=== PATIENT | female | born 1930 | race Caucasian/White ===

== ENCOUNTER 2018-02-16 01:11 | Emergency (ER) | payer MEDICARE ==
[2018-02-16] MEDS ORDERED: Ondansetron HCl/PF 4 MG/2 ML Vial ONE (01:22)
[2018-02-16] MEDS ORDERED: Meclizine HCl 25 MG TAB ONE (01:40)
[2018-02-16 02:01] LABS: #Basophils 0.1 thou/uL (0.0-0.2); #Eosinphils 0.1 thou/uL (0.0-0.7); #Lymphocytes 0.9 thou/uL (1.20-3.40); #Monocytes 0.4 thou/uL (0.11-0.59); #Neutrophils 7.7 thou/uL (1.40-6.50); %Basophils 0.6 % (0.0-1.0); %Eosinophils 0.7 % (0.0-10.0); %Lymphocytes 10.3 % (21.0-51.0); %Monocytes 4.5 % (0.0-10.0); %Neutrophils 83.9 % (42.0-75.0); Hemoglobin 14.9 g/dL (12.0-16.0); Mean Corpuscular HGB CONC 33.1 g/dL (32.0-36.0); Mean Corpuscular Hemoglobin 31.7 pg (27.0-31.0); Mean Corpuscular Volume 95.8 fL (78.0-98.0); Mean Platelet Volume 11.4 fL (7.4-10.4); Platelet Count 84 thou/uL (130-400); RBC Distribution Width 12.2 % (11.5-14.5); Red Blood Cell (RBC) Count 4.72 mill/uL (4.20-5.40); White Blood Cell (WBC) Count 9.2 thou/uL (4.8-10.8)
[2018-02-16 02:14] LABS: Troponin I Less than 0.010 ng/mL (< 0.028)
[2018-02-16 03:19] LABS: Chloride 107 mmol/L (98-107); Sodium 139 mmol/L (136-145)
[2018-02-16 03:20] LABS: Calcium 9.1 mg/dL (7.8-10.44); Glucose 143 mg/dL (83-110)
[2018-02-16 03:21] LABS: Globulin 2.9 g/dL (2.4-3.5); Protein, Total 6.9 g/dL (6.0-8.3)
[2018-02-16 03:22] LABS: Anion Gap 13 mmol/L (10-20); Bilirubin, Total 0.7 mg/dL (0.2-1.2); Carbon Dioxide 23 mmol/L (23-31)
[2018-02-16 03:23] LABS: Alkaline Phosphatase 64 U/L (40-150)
[2018-02-16 03:24] LABS: BUN (Urea Nitrogen) 17 mg/dL (9.8-20.1); Calc. Creatinine Clearance 0 mL/min (70-130); Estimated GFR-MDRD 74
[2018-02-16 03:26] LABS: ALT (SGPT) 24 U/L (8-55); AST (SGOT) 21 U/L (5-34)
--- NOTE | 2018-02-16 08:52 | CT ---
PRELIMINARY REPORT/[facility]/EMERGENTY AFTER-HOURS PROCEDURE CT Head Without Intravenous Contrast CLINICAL HISTORY: 87 years old, female; Signs and symptoms; Dizziness; Patient HX: F87 presents to the ed C/O dizziness /vertigo and vomiting that started at 2000 last night. Pt. Reports that she first experienced the diz ziness symptoms where she then took one capsule of valium that provoked the n/v. Pt. Reports that her "throat feels dry". Pt. Reports having vertigo in the past and states that these sym ptoms are similar. Pt. Reports having a pacemaker. Pt. 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 TECHNIQUE: Axial computed tomography images of the head/brain without intravenous contrast. COMPARISON: No relevant prior studies available. FINDINGS: Brain: No mass, hemorrhage, or acute infarction. Ventricles: Normal. Bones/joints: Normal. No acute fracture. Soft tissues: Normal. Vasculature: Atherosclerotic vascular calcifications. Sinuses: Minimal left anterior ethmoid sinus disease. Mastoid air cells: Normal as visualized. No mastoid effusion. IMPRESSION: 1. No acute findings. 2. Non-acute findings are described above. Thank you for allowing us to participate in the care of your patient. Dictated and Authenticated by: Alexsander Finn MD 02/16/2018 2:58 AM Central Time ([place] & [place]) FINAL REPORT EMERGENCY AFTER HOURS STUDY CT BRAIN NONCONTRAST: HISTORY: An 87-year-old female with dizziness/vertigo, nausea, and emesis. FINDINGS: There is no midline shift or any other mass effect. There is no evidence of acute intracranial hemor rhage, large cortical infarct, obstructive hydrocephalus, or extraaxial fluid collection. The calvar ium is intact. This report agrees with preliminary report by [facility]. IMPRESSION: No acute intracranial findings. lemuel POS: [facility]
--- NOTE | 2018-02-16 09:29 | RAD ---
RADIOGRAPH CHEST 1 VIEW: HISTORY: An 87-year-old female with vertigo, nausea, and emesis. FINDINGS: There is cardiomegaly. There is no evidence of air space density, pulmonary edema, or pneumothorax. T he lateral costophrenic angles are sharp. There is a dual-lead left subclavian pacemaker. There are calcified right hilar lymph nodes, and several calcified pulmonary granulomata in the right mid and lower lung zones centrally. IMPRESSION: 1) No acute pulmonary findings. 2) Cardiomegaly without congestive heart failure. 3) Pacemaker. jn [] POS: [facility]
== END 2018-02-16 03:46 | disposition home or self-care (01) ==
LOC: ERS 01:11
DX: H81.399 Other peripheral vertigo, unspecified ear (principal); E03.9 Hypothyroidism, unspecified; Z79.899 Other long term (current) drug therapy
CPT/HCPCS: 36415; 70450; 71045; 80053; 83735; 84484; 85025; 93005; 96361; 96374; J2405

== ENCOUNTER 2018-07-28 03:41 | Emergency (ER) | payer MEDICARE ==
--- NOTE | 2018-07-28 07:43 | CT ---
PRELIMINARY REPORT/[facility]/EMERGENCY AFTER HOURS PROCEDURE: EXAM: CT Cervical Spine Without Contrast EXAM DATE/TIME: 07/28/2018 4:20 AM CLINICAL HISTORY: 87 years old, female; Injury or trauma; Fall; Initial encounter; Blunt trauma; Patient HX: F87 presen ts to ed for fall. PT reports she was upstairs in her 's room when she attempted to sit in a c hair which she reports went out from underneath her. PT reports falling and hitting her head on the floor. PT denies loc. TECHNIQUE: Imaging protocol: Axial computed tomography images of the cervical spine without intravenous contrast . COMPARISON: No relevant prior studies available. FINDINGS: Vertebrae: The bones are demineralized. No acute fracture. Discs/Spinal canal/Neural foramina: Multilevel degenerative disc and uncovertebral arthrosis. Mild to moderate spinal canal narrowing at the C5-C6 level secondary to posterior disc osteophyte complex. Soft tissues: Unremarkable. Lungs: Lung apices are normal. IMPRESSION: No evidence of acute injury to the cervical spine. Thank you for allowing us to participate in the care of your patient. Dictated and Authenticated by: Cristina Bermudez MD 07/28/2018 4:42 AM Central Time ([place] & [place]) FINAL REPORT CERVICAL SPINE CT WITHOUT CONTRAST: Date: 07/28/18 COMPARISON: None. HISTORY: Fall, trauma, pain. FINDINGS: This report is in agreement with the preliminary report given by [facility]. Imaged paranasal sinuses/masto id air cells are well aerated. C1 ring intact. Occipital condyles, dens, C1-2 articulation, craniocer vical junction, and cervicothoracic junction demonstrate no acute findings. Imaged lung apices are grossly unremarkable. There is an incompletely imaged transvenous pacing devic e on the left. There is multilevel disc space narrowing and degenerative end plate change throughout the cervical sp ine, including the C3-4 through C6-7 levels. There is also multilevel bilateral facet and uncovertebr al osteophyte formation, particularly left-sided. No acute fracture or evidence of dislocation. IMPRESSION: Degenerative changes. No acute fracture or dislocation noted. POS: [facility]
--- NOTE | 2018-07-28 08:28 | CT ---
PRELIMINARY REPORT/[facility]/EMERGENCY AFTER HOURS PROCEDURE: EXAM: CT Head Without Contrast EXAM DATE/TIME: 07/28/2018 4:18 AM CLINICAL HISTORY: 87 years old, female; Injury or trauma; Fall; Initial encounter; Blunt trauma (contusions or hematoma s); Patient HX: FRayo presents to ed for fall. PT reports she was upstairs in her 's room when s he attempted to sit in a chair which she reports went out from underneath her. PT reports falling and hitting her head on the floor. PT denies loc. TECHNIQUE: Imaging protocol: Axial computed tomography images of the head/brain without contrast. COMPARISON: No relevant prior studies available. FINDINGS: Brain: No hemorrhage. No major vessel vascular territory infarct. No extra-axial fluid collection. Ventricles: No hydrocephalus. Bones/joints: No acute fracture. Sinuses: Mild left ethmoidal sinus fluid. Mastoid air cells: Visualized mastoid air cells are unremarkable. No mastoid effusion. Soft tissues: Unremarkable. IMPRESSION: No acute intracranial abnormality. Thank you for allowing us to participate in the care of your patient. Dictated and Authenticated by: Cristina Bermudez MD 07/28/2018 4:35 AM Central Time ([place] & [place]) FINAL REPORT HEAD CT WITHOUT CONTRAST: Date: 07/28/18 COMPARISON: 02/16/18. HISTORY: Fall, trauma, pain. FINDINGS: This report is in agreement with the preliminary report given by [facility]. The imaged paranasal sinuses a nd mastoid air cells are well aerated. No intracranial hemorrhage, midline shift, or mass effect. No displaced calvarial fracture. IMPRESSION: No intracranial hemorrhage or displaced calvarial fracture. POS: [facility]
== END 2018-07-28 04:46 | disposition home or self-care (01) ==
LOC: ERS 03:41
DX: S09.90XA Unspecified injury of head, initial encounter (principal); I49.9 Cardiac arrhythmia, unspecified; E03.9 Hypothyroidism, unspecified; Z79.899 Other long term (current) drug therapy; Z79.01 Long term (current) use of anticoagulants; W18.30XA Fall on same level, unspecified, initial encounter
CPT/HCPCS: 70450; 72125

== ENCOUNTER 2018-08-27 08:00 | Emergency (ER) | payer MEDICARE ==
[2018-08-27] MEDS ORDERED: Ondansetron PF 4 MG/2 ML Vial ONE ×2 (08:25→08:51)
[2018-08-27] MEDS ORDERED: Meclizine HCl 25 MG TAB PO SCH (09:15)
[2018-08-27] MEDS ORDERED: Promethazine HCl 25 MG/ML VIAL ONE (09:19)
[2018-08-27] MEDS ORDERED: Meclizine HCl 25 MG TAB ONE (09:47)
== END 2018-08-27 13:55 | disposition home or self-care (01) ==
LOC: ERS 08:00
DX: H81.399 Other peripheral vertigo, unspecified ear (principal); R11.2 Nausea with vomiting, unspecified; E03.9 Hypothyroidism, unspecified; Z79.899 Other long term (current) drug therapy
CPT/HCPCS: 93005; 96361; 96365; 96375; J2405; J2550; J8499

== ENCOUNTER 2018-09-19 01:06 | Observation (INO) | payer MEDICARE ==
[2018-09-19] MEDS ORDERED: Meclizine HCl 25 MG TAB ONE ×2 (01:40→04:03)
[2018-09-19 01:46] LABS: Hemoglobin 15.6 g/dL (12.0-16.0); Mean Corpuscular HGB CONC 32.5 g/dL (32.0-36.0); Mean Corpuscular Hemoglobin 31.5 pg (27.0-31.0); Mean Corpuscular Volume 96.9 fL (78.0-98.0); RBC Distribution Width 12.3 % (11.5-14.5); Red Blood Cell (RBC) Count 4.95 mill/uL (4.20-5.40); White Blood Cell (WBC) Count 9.7 thou/uL (4.8-10.8)
[2018-09-19] MEDS ORDERED: Promethazine HCl 25 MG/ML VIAL ONE ×2 (01:50→03:00)
[2018-09-19 02:03] LABS: ALT (SGPT) 35 U/L (8-55); AST (SGOT) 32 U/L (5-34); Albumin 4.8 g/dL (3.4-4.8); Alkaline Phosphatase 79 U/L (40-150); Anion Gap 16 mmol/L (10-20); BUN (Urea Nitrogen) 20 mg/dL (9.8-20.1); Bilirubin, Total 0.6 mg/dL (0.2-1.2); Calc. Creatinine Clearance 0 mL/min (70-130); Calcium 10.1 mg/dL (7.8-10.44); Carbon Dioxide 22 mmol/L (23-31); Chloride 104 mmol/L (98-107); Estimated GFR-MDRD 72; Globulin 2.8 g/dL (2.4-3.5); Glucose 196 mg/dL (83-110); Potassium 4.1 mmol/L (3.5-5.1); Protein, Total 7.6 g/dL (6.0-8.3); Sodium 138 mmol/L (136-145)
[2018-09-19 02:11] LABS: #Basophils 0.1 thou/uL (0.0-0.2); #Eosinphils 0.2 thou/uL (0.0-0.7); #Lymphocytes 1.1 thou/uL (1.20-3.40); #Monocytes 0.5 thou/uL (0.11-0.59); #Neutrophils 7.8 thou/uL (1.40-6.50); %Basophils 0.8 % (0.0-1.0); %Eosinophils 1.7 % (0.0-10.0); %Lymphocytes 11.2 % (21.0-51.0); %Monocytes 5.3 % (0.0-10.0); Mean Platelet Volume 11.2 fL (7.4-10.4); Platelet Count 76 thou/uL (130-400); Platelet Morphology Comment Appears Decreased; RBC Morphology Normal
[2018-09-19] MEDS ORDERED: Promethazine HCl 12.5 MG SUPP ONE (02:59)
[2018-09-19] MEDS ORDERED: Ondansetron PF 4 MG/2 ML Vial ONE (03:29)
--- NOTE | 2018-09-19 05:17 | PDOC.FPRHP ---
- History of Present Illness Chief Complaint: Dizziness History of Present Illness: Mrs. Rea presents with her son for nausea/dizziness She is very somnolent on exam and responds minimally to questioning, her son at bedside answers most questions. She has had difficulties with vertigo for some time and tonight is no different, she has been overdoing it recently helping her with ADLs, additionally was exposed to second hand smoke today. She began to feel the room spin, have nausea/emesis last evening. At that point her son brought her in. He denies any new symptoms at that time, seizure, syncope, numbness, weakness, or fall. ED Course: CBC, CMP, lipase, trop, mg phengranx2, zofran, meclizine, 1L NS - Allergies/Adverse Reactions Allergies Allergy/AdvReac Type Severity Reaction Status Date / Time codeine Allergy Verified 11/02/16 06:41 morphine Allergy Verified 11/02/16 06:41 tetracycline Allergy Verified 11/02/16 06:41 MSG Allergy Mild Uncoded 11/02/16 06:41 - Home Medications Medication Instructions Recorded Confirmed Type Apixaban [Eliquis] 5 mg PO BID 04/02/14 09/19/18 History Levothyroxine Sodium [Synthroid] 75 mcg PO DAILY 04/02/14 09/19/18 History Diazepam [Valium] 2 mg PO HS PRN 09/19/18 09/19/18 History Losartan [Cozaar] 25 mg PO DAILY 09/19/18 09/19/18 History Ondansetron [Zofran ODT] 4 mg SL Q6H PRN 09/19/18 09/19/18 History - History PMHx: HTN, Afib, vertigo PSHx: lymph nodectomy FHx: NC Social: No TAD - Review of Systems General: denies: fever/chills, weight/appetite/sleep changes Eyes: reports: vision changes. denies: eye pain ENT: denies: nasal congestion Respiratory: denies: cough, congestion Cardiovascular: denies: chest pain, palpitation Gastrointestinal: reports: nausea, vomiting. denies: diarrhea, constipation Genitourinary: denies: incontinence, dysuria Skin: denies: rashes Musculoskeletal: denies: pain Neurological: denies: numbness, syncope, seizure, weakness - Vital signs BP: 159/97 HR: 70 RR: 22 Tmax: 97.9 Pox: 96% on RA Wt: 68kg - Physical Exam Constitutional: other (somnolent on exam) HEENT: normocephalic and atraumatic, grossly normal vision, grossly normal hearing Neck: supple, trachea midline Chest: no-tender to palpation Heart: RRR, normal S1/S2 Lungs: CTAB, no respiratory distress Abdomen: soft, non-tender Musculoskeletal: normal structure, normal tone Skin: no rash/lesions, good turgor Heme/Lymphatic: no unusual bruising or bleeding Psychiatric: normal mood and affect FMR H&P: Results - Labs Result Diagrams: 09/19/18 01:32 09/19/18 01:32 Lab results: WBC 9.7 thou/uL (4.8-10.8) 09/19/18 01:32 Hgb 15.6 g/dL (12.0-16.0) 09/19/18 01:32 Hct 48.0 % (36.0-47.0) H 09/19/18 01:32 MCV 96.9 fL (78.0-98.0) 09/19/18 01:32 Plt Count 76 thou/uL (130-400) L 09/19/18 01:32 Neutrophils % 81.0 % (42.0-75.0) H 09/19/18 01:32 Sodium 138 mmol/L (136-145) 09/19/18 01:32 Potassium 4.1 mmol/L (3.5-5.1) 09/19/18 01:32 Chloride 104 mmol/L (98-107) 09/19/18 01:32 Carbon Dioxide 22 mmol/L (23-31) L 09/19/18 01:32 BUN 20 mg/dL (9.8-20.1) 09/19/18 01:32 Creatinine 0.76 mg/dL (0.6-1.1) 09/19/18 01:32 Glucose 196 mg/dL (83-110) H 09/19/18 01:32 Calcium 10.1 mg/dL (7.8-10.44) 09/19/18 01:32 Total Bilirubin 0.6 mg/dL (0.2-1.2) 09/19/18 01:32 AST 32 U/L (5-34) 09/19/18 01:32 ALT 35 U/L (8-55) 09/19/18 01:32 Alkaline Phosphatase 79 U/L (40-150) 09/19/18 01:32 Serum Total Protein 7.6 g/dL (6.0-8.3) 09/19/18 01:32 Albumin 4.8 g/dL (3.4-4.8) 09/19/18 01:32 Lipase 41 U/L (8-78) 09/19/18 01:32 FMR H&P: A/P - Problem List (1) Vertigo Current Visit: Yes Status: Acute Code(s): R42 - DIZZINESS AND GIDDINESS (2) HTN (hypertension) Current Visit: Yes Status: Acute Code(s): I10 - ESSENTIAL (PRIMARY) HYPERTENSION (3) Afib Current Visit: Yes Status: Acute Code(s): I48.91 - UNSPECIFIED ATRIAL FIBRILLATION (4) Hypothyroid Current Visit: Yes Status: Acute Code(s): E03.9 - HYPOTHYROIDISM, UNSPECIFIED - Plan Intractable vertigo - resting more comfortably at this point, VSS on exam, pt fatigued - neuro exam deferred at that time as pt was sleeping, extensive neuro exam reported normal by ED physician - prn meclizine, phenergan, zofran - scopolamine TD - consider ativan if symptoms persist HTN - recorded elevations, most likely associated with n/v - continue home meds Afib - Vpaced, continue home anticoag Hypothyroid - continue home meds PCP: Rona Code: full ppx: christine dispo: admit to medical, treat vertigo FMR H&P: Upper Level - Pertinent history 87 yo female here for intractable nausea, dizziness. Room spinning. Started feeling dizzy and vomiting Wednesday night. Nurse staying at patient's house taking care of her called the patient's son who came over. Pt's son provides most of the history as the patient is sleeping during most of the interview. He reports she has been "overdoing it" recently with assisting . Patient has history of similar presentation, and has been admitted 3-4 times the past 4 years and has been seen in ER a few other times and d/c from ER for the same problem. Has been worked up and seen by neurology in the past. - Pertinent findings 152/79 HR: 70 RR: 17 GEN: drowsy, protecting airway and answers questions, but quickly goes back to sleep PULM: CTAB CARD: RRR, no mgr Labs, imaging unremarkable EKG shows ventricular pacing - Plan Date/Time: 09/19/18 0515 IDaniel DO, have evaluated this patient and agree with findings/plan as outlined by photography intern resident. Pertinent changes/additions are listed here. #vertigo -deferred full exam because patient was resting and not vomiting for the first time since arriving in the ER, exam was done by ER physician -meclizine, zofran, phenergan, scopolamine -can try reglan if no improvement -has been worked up for this extensively in the past #HTN -patient and son unable to give home med list -will attempt to med rec today #Afib -ventricular pacing Addendum - Attending - Attending Attestation Date/Time: 09/19/18 1325 I personally evaluated the patient and discussed the management with Dr. Gaviria I agree with the History, Examination, Assessment and Plan documented above with any addition or exceptions noted below. Pleasant 87 yo female with PMHX BPPV brought in with several days increasing symptoms she relates started by the smell of heavy nicotine odor on clothing from caregiver who smokes. Patient with poor response to zofran 4 mg ODT, antivert and phernergan. Patient to [facility] ER placed in observation with intractable emesis and started on IV fluids and promethazine with good response. History previous extensive Neurological work up. Note long standing thrombocytopenia ,hypothyroidism, atrial fibrillation s/p ablation and pacemaker , history of breast cancer s/p XRT. Will place observation IV re-hydration discuss trial 2mg valium q hs prn and transderm scopalamine as well. She denies headache, focal neurologic findings, hearing loss or tinnitus. Advance diet and activity d/c when back at baseline.
[2018-09-19] MEDS ORDERED: Ondansetron PF 4 MG/2 ML Vial IVP PRN (05:42)
[2018-09-19] MEDS ORDERED: Ondansetron ODT 4 MG TAB PO PRN (05:42)
[2018-09-19] MEDS ORDERED: Promethazine HCl 25 MG/ML VIAL IM/IV PRN (05:49)
[2018-09-19] MEDS ORDERED: Acetaminophen 325 MG TAB PO PRN (06:38)
[2018-09-19] MEDS ORDERED: Lactated Ringer's 1,000 ML IV SCH (06:45)
[2018-09-19] MEDS ORDERED: Scopolamine 1.5 mg/72 hour Patch TD SCH (09:00)
[2018-09-19 12:01] VITALS: BP 149/76; TEMP 97.8
[2018-09-19 14:04] VITALS: BMI 24.9
--- NOTE | 2018-09-20 04:20 | DIS ---
DATE OF ADMISSION: 09/19/2018 DATE OF DISCHARGE: 09/19/2018 ADMITTING ATTENDING: Abdiaziz Adler MD RESIDENT: Dylan Harrell DO CONSULTS: None. PROCEDURES: None. PRIMARY DIAGNOSIS: Intractable vertigo with a negative neuro exam. SECONDARY DIAGNOSES: 1. Hypertension. 2. Atrial fibrillation. 3. Hypothyroidism. DISCHARGE MEDICATIONS: Include; 1. Valium 2 mg p.o. at bedtime p.r.n. vertigo. 2. Eliquis 5 mg p.o. b.i.d. 3. Levothyroxine 75 mcg p.o. daily. 4. Losartan 25 mg p.o. daily. 5. Zofran 4 mg SL q.6 hours p.r.n. nausea, vomiting. DISCONTINUED MEDICATIONS: None. BRIEF HISTORY OF PRESENT ILLNESS/HOSPITAL COURSE: This is an 87-year-old female with past medical history as above, who presented with intractable vertigo associated with nausea. She reports that she has had multiple episodes like this in the past and says this is the worst. In the ER, the patient received Phenergan, Zofran, meclizine, and a L of fluid, which improved her symptoms. She states that when she gets past her initial symptoms, she is usually okay to go home. We will continue to monitor the patient throughout the day. The patient was able to tolerate food and walk without severe symptoms. The patient also states that she would take Valium when needed. Vital signs remained stable while she was here. DISPOSITION: Stable. DISCHARGE INSTRUCTIONS: 1. Location: Home. 2. Diet: Heart healthy. 3. Activity: As tolerated. 4. Follow up with PCP, Krish Ghosh 1-2 weeks. Job ID: [id number] MTDD
== END 2018-09-19 14:30 | disposition home or self-care (01) ==
LOC: ERS 01:06 → SURG A 05:10
PROVIDERS: ADMIT Student in an Organized Health Care Education/Training Program; ATTEND Student in an Organized Health Care Education/Training Program
DX: H81.10 Benign paroxysmal vertigo, unspecified ear (principal); I10 Essential (primary) hypertension; I48.91 Unspecified atrial fibrillation; E03.9 Hypothyroidism, unspecified; Z77.22 Contact with and (suspected) exposure to environmental tobacco smoke (acute) (chronic); Z79.01 Long term (current) use of anticoagulants; Z79.899 Other long term (current) drug therapy; Z88.1 Allergy status to other antibiotic agents; Z88.5 Allergy status to narcotic agent; Z91.02 Food additives allergy status; Z95.0 Presence of cardiac pacemaker; Z98.890 Other specified postprocedural states
CPT/HCPCS: 80053; 83690; 83735; 84484; 85025; 93005; 96365; 96366; 96375; 99285; G0378 ×2; J2405; J2550; J8499

== ENCOUNTER 2018-10-02 03:16 | Emergency (ER) | payer MEDICARE ==
[2018-10-02 03:49] LABS: #Eosinphils 0.1 thou/uL (0.0-0.7); #Monocytes 0.4 thou/uL (0.11-0.59); #Neutrophils 8.2 thou/uL (1.40-6.50); %Basophils 0.3 % (0.0-1.0); %Eosinophils 1.1 % (0.0-10.0); %Lymphocytes 10.3 % (21.0-51.0); %Monocytes 4.2 % (0.0-10.0); %Neutrophils 84.1 % (42.0-75.0); Hemoglobin 14.7 g/dL (12.0-16.0); Mean Corpuscular HGB CONC 33.3 g/dL (32.0-36.0); Mean Corpuscular Hemoglobin 31.9 pg (27.0-31.0); Mean Corpuscular Volume 95.8 fL (78.0-98.0); Mean Platelet Volume 10.8 fL (7.4-10.4); Platelet Count 148 thou/uL (130-400); RBC Distribution Width 12.3 % (11.5-14.5); Red Blood Cell (RBC) Count 4.63 mill/uL (4.20-5.40); White Blood Cell (WBC) Count 9.8 thou/uL (4.8-10.8)
[2018-10-02 04:11] LABS: ALT (SGPT) 32 U/L (8-55); AST (SGOT) 26 U/L (5-34); Albumin 4.2 g/dL (3.4-4.8); Alkaline Phosphatase 81 U/L (40-150); Anion Gap 15 mmol/L (10-20); BUN (Urea Nitrogen) 18 mg/dL (9.8-20.1); Bilirubin, Total 0.5 mg/dL (0.2-1.2); Calc. Creatinine Clearance 0 mL/min (70-130); Calcium 9.9 mg/dL (7.8-10.44); Carbon Dioxide 22 mmol/L (23-31); Chloride 102 mmol/L (98-107); Estimated GFR-MDRD 81; Glucose 145 mg/dL (83-110); Protein, Total 7.2 g/dL (6.0-8.3); Sodium 135 mmol/L (136-145)
[2018-10-02] MEDS ORDERED: Ondansetron PF 4 MG/2 ML Vial ONE (07:45)
[2018-10-02] MEDS ORDERED: Diazepam 5 MG TAB ONE (07:45)
--- NOTE | 2018-10-02 10:03 | CT ---
CT BRAIN WITHOUT CONTRAST: Date: 10/02/18 INDICATION: 87-year-old female with symptoms of dizziness, and nausea and vomiting. COMPARISON: Prior exam dated 07/28/18. FINDINGS: No acute infarct, hemorrhage, or hydrocephalus is present. Septum pellucidum and third ventricle are midline. Small hypodensity within the inferior aspect of the right globus pallidus may reflect promin ent Virchow-Giancarlo space or a remote lacunar infarct. The mastoid air cells are clear. There is mild m ucosal thickening of the ethmoid air cell, which is stable. Skull intact. IMPRESSION: No acute intracranial abnormality demonstrated. POS: [facility]
== END 2018-10-02 09:14 | disposition home or self-care (01) ==
LOC: ERS 03:16
DX: R11.2 Nausea with vomiting, unspecified (principal); R42 Dizziness and giddiness
CPT/HCPCS: 70450; 80053; 85025; 93005; 96360; J2405

== ENCOUNTER 2019-06-12 13:46 | Outpatient (CLI) | payer MEDICARE ==
--- NOTE | 2019-06-12 15:41 | BD ---
BONE DENSITOMETRY USING DEXA: Date: 06/12/2019 HISTORY: Postmenopausal osteoporosis. FINDINGS: Lumbar Spine: BMD (g/cm2) L1 0.670 T-Score: -2.9 L2 0.753 T-Score: -2.5 L3 0.769 T-Score: -2.9 L4 0.713 T-Score: -3.2 L1-L4 0.726 T-Score: -2.9 Femoral Neck: 0.578 T-Score: -2.4 Total Femur: 0.609 T-Score: -2.7 IMPRESSION: Osteoporosis. POS: [facility]
--- NOTE | 2019-06-22 13:28 | MMO ---
Bilateral MAMMO Bilat Screen [facility]. CLINICAL HISTORY: Patient is 88 years old and is seen for screening. The patient has no family history of breast cancer. The patient has a history of malignant (generic) in the left breast at age 68. 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 VIEWS: The views performed were: bilateral craniocaudal with tomosynthesis and bilateral mediolateral oblique with tomosynthesis. FILMS COMPARED: The present examination has been compared to prior imaging studies performed at [facility] on 06/03/2012 and 01/18/2013, and at [facility] on 07/23/2014 and 05/19/2017. This study has been interpreted with the assistance of computer-aided detection. MAMMOGRAM FINDINGS: There are scattered fibroglandular densities. There are stable benign appearing calcifications seen in both breasts. There are no suspicious masses, suspicious calcifications, or new areas of architectural distortion. IMPRESSION: THERE IS NO MAMMOGRAPHIC EVIDENCE OF MALIGNANCY. A ROUTINE FOLLOW-UP MAMMOGRAM IN 1 YEAR IS RECOMMENDED. THE RESULTS OF THIS EXAM WERE SENT TO THE PATIENT. ACR BI-RADS Category 2 - Benign finding MAMMOGRAPHY NOTE: 1. A negative mammogram report should not delay a biopsy if a dominant of clinically suspicious mass is present. 2. Approximately 10% to 15% of breast cancers are not detected by mammography. 3. Adenosis and dense breasts may obscure an underlying neoplasm. Reported by: MERCED ORTIZ MD Electonically Signed: [id number]
== END 2019-06-12 13:47 | disposition home or self-care (01) ==
LOC: BICMAMMO 13:46
PROVIDERS: ATTEND Nurse Practitioner Adult Health
DX: Z12.31 Encounter for screening mammogram for malignant neoplasm of breast (principal); M81.0 Age-related osteoporosis without current pathological fracture; Z85.3 Personal history of malignant neoplasm of breast; Z91.89 Other specified personal risk factors, not elsewhere classified
CPT/HCPCS: 77063; 77067; 77080

== ENCOUNTER 2019-07-21 20:38 | Observation (INO) | payer MEDICARE ==
[2019-07-21 21:24] LABS: Hemoglobin 14.5 g/dL (12.0-16.0); Mean Corpuscular HGB CONC 32.7 g/dL (32.0-36.0); Mean Corpuscular Hemoglobin 31.9 pg (27.0-31.0); Mean Corpuscular Volume 97.3 fL (78.0-98.0); RBC Distribution Width 12.6 % (11.5-14.5); Red Blood Cell (RBC) Count 4.55 mill/uL (4.20-5.40); White Blood Cell (WBC) Count 9.4 thou/uL (4.8-10.8)
--- NOTE | 2019-07-21 21:24 | RAD ---
Portable frontal chest radiograph: 07/21/2019 COMPARISON: 02/16/2018 HISTORY: Vomiting, vertigo FINDINGS: Heart and mediastinal contours are stable. Stable enlargement of the cardiac silhouette. St able dual lead transvenous pacing device. No focal consolidation or alveolar edema. IMPRESSION: No acute findings.
[2019-07-21] MEDS ORDERED: Ondansetron PF 4 MG/2 ML Vial ONE (21:27)
[2019-07-21] MEDS ORDERED: diphenhydrAMINE 12.5 MG/5 ML UDCUP ONE (21:27)
[2019-07-21] MEDS ORDERED: Metoclopramide HCl 10 MG/2 ML VIAL ONE (21:27)
[2019-07-21] MEDS ORDERED: diphenhydrAMINE 50 MG/ML VIAL ONE (21:29)
[2019-07-21 21:39] LABS: #Basophils 0.1 thou/uL (0.0-0.2); #Eosinphils 0.2 thou/uL (0.0-0.7); #Lymphocytes 1.4 thou/uL (1.20-3.40); #Monocytes 0.5 thou/uL (0.11-0.59); #Neutrophils 7.2 thou/uL (1.40-6.50); %Basophils 0.6 % (0.0-1.0); %Lymphocytes 15.2 % (21.0-51.0); %Monocytes 5.7 % (0.0-10.0); %Neutrophils 76.5 % (42.0-75.0); Mean Platelet Volume 10.8 fL (7.4-10.4); Platelet Count 67 thou/uL (130-400); Platelet Morphology Comment Appears Decreased
[2019-07-21 21:41] LABS: ALT (SGPT) 21 U/L (8-55); AST (SGOT) 22 U/L (5-34); Albumin 4.6 g/dL (3.4-4.8); Alkaline Phosphatase 73 U/L (40-110); Anion Gap 15 mmol/L (10-20); BUN (Urea Nitrogen) 22 mg/dL (9.8-20.1); Bilirubin, Total 0.9 mg/dL (0.2-1.2); Calc. Creatinine Clearance 0 mL/min (70-130); Calcium 9.9 mg/dL (7.8-10.44); Carbon Dioxide 26 mmol/L (23-31); Chloride 100 mmol/L (98-107); Estimated GFR-MDRD 69; Globulin 2.9 g/dL (2.4-3.5); Glucose 130 mg/dL (83-110); Lipase 35 U/L (8-78); Protein, Total 7.5 g/dL (6.0-8.3); Sodium 137 mmol/L (136-145)
[2019-07-21 22:07] LABS: CKMB 7.6 ng/mL (0-6.6)
[2019-07-21] MEDS ORDERED: Aspirin Chewable 81 MG TAB ONE (22:10)
--- NOTE | 2019-07-21 22:53 | PDOC.FPRHP ---
- History of Present Illness Chief Complaint: vertigo, intractable vomiting History of Present Illness: 88 yo f presents with vertigo since 7pm tonight, and shortly after that started vomiting. She has tried phenergan in the passed but ran out and was not able to try it. She vomited multiple times over 4 hours, intractable. Nonblood or bilious. Denies headaches. She received zofran, benadryl, reglan in the ER and feels better. Fast movements with her head make it worse, or overdoing it. - Allergies/Adverse Reactions Allergies Allergy/AdvReac Type Severity Reaction Status Date / Time codeine Allergy Verified 11/02/16 06:41 morphine Allergy Hives Verified 07/22/19 01:00 Penicillins Allergy Unverified 07/22/19 01:00 sulfamethoxazole Allergy Unverified 07/22/19 00:59 [From Bactrim] tetracycline Allergy Verified 11/02/16 06:41 trimethoprim [From Bactrim] Allergy Unverified 07/22/19 00:59 MSG Allergy Mild Uncoded 11/02/16 06:41 - Home Medications Medication Instructions Recorded Confirmed Type Apixaban [Eliquis] 5 mg PO BID 04/02/14 09/19/18 History Levothyroxine Sodium [Synthroid] 75 mcg PO DAILY 04/02/14 09/19/18 History Diazepam [Valium] 2 mg PO HS PRN 09/19/18 09/19/18 History Losartan [Cozaar] 25 mg PO DAILY 09/19/18 09/19/18 History Ondansetron [Zofran ODT] 4 mg SL Q6H PRN 09/19/18 09/19/18 History - History PMHx:Vertigo/BPP, hx of atrial flutter/a fib, now with a pacemaker, Mitral regurge, Hypothyroidism, HTN, macular degeneration PSHx: Left lumpectomy with lymph nodes, bladder lift, hernia repair, partial hysterectomy, thyroidectomy, partial. skin cancer removal. Pacemaker placement FHx:non-contributory Social:denies hx of drug-use, alcohol, smoking - Review of Systems General: denies: fever/chills, weight/appetite/sleep changes, fatigue ENT: denies: nasal congestion Respiratory: denies: cough, congestion, shortness of breath Cardiovascular: denies: chest pain Gastrointestinal: reports: nausea, vomiting, abdominal pain (with vomitus). denies: diarrhea Skin: reports: rashes. denies: lesions Musculoskeletal: denies: pain, tenderness Neurological: denies: numbness, syncope - Vital signs BP: 114/62 HR: 70 RR: 18 Tmax: 97.8 Pox: 94% on RA Wt: 65.8kg - Physical Exam Constitutional: NAD, awake, alert and oriented, well developed HEENT: normocephalic and atraumatic, PERRLA, EOMI, conjunctiva clear, no scleral icterus, grossly normal hearing, normal nasal mucosa, MMM Heart: RRR, other (holosystolic murmur) Lungs: CTAB, no respiratory distress, good air movement, no rales/rhonchi, no wheezing, no retractions Abdomen: soft, non-tender, bowel sounds present Musculoskeletal: normal structure Neurological: no focal deficit, CN II-XII intact, normal sensation Skin: no rash/lesions, good turgor, capillary refill <2 seconds Heme/Lymphatic: no unusual bruising or bleeding, no purpura Psychiatric: normal mood and affect FMR H&P: Results - Labs Result Diagrams: 07/21/19 21:13 07/21/19 21:13 Lab results: WBC 9.4 thou/uL (4.8-10.8) 07/21/19 21:13 Hgb 14.5 g/dL (12.0-16.0) 07/21/19 21:13 Hct 44.3 % (36.0-47.0) 07/21/19 21:13 MCV 97.3 fL (78.0-98.0) 07/21/19 21:13 Plt Count 67 thou/uL (130-400) L 07/21/19 21:13 Neutrophils % 76.5 % (42.0-75.0) H 07/21/19 21:13 Sodium 137 mmol/L (136-145) 07/21/19 21:13 Potassium 4.0 mmol/L (3.5-5.1) 07/21/19 21:13 Chloride 100 mmol/L (98-107) 07/21/19 21:13 Carbon Dioxide 26 mmol/L (23-31) 07/21/19 21:13 BUN 22 mg/dL (9.8-20.1) H 07/21/19 21:13 Creatinine 0.79 mg/dL (0.6-1.1) 07/21/19 21:13 Glucose 130 mg/dL (83-110) H 07/21/19 21:13 Calcium 9.9 mg/dL (7.8-10.44) 07/21/19 21:13 Total Bilirubin 0.9 mg/dL (0.2-1.2) 07/21/19 21:13 AST 22 U/L (5-34) 07/21/19 21:13 ALT 21 U/L (8-55) 07/21/19 21:13 Alkaline Phosphatase 73 U/L (40-110) 07/21/19 21:13 CK-MB (CK-2) 7.6 ng/mL (0-6.6) H* 07/21/19 21:13 Serum Total Protein 7.5 g/dL (6.0-8.3) 07/21/19 21:13 Albumin 4.6 g/dL (3.4-4.8) 07/21/19 21:13 Lipase 35 U/L (8-78) 07/21/19 21:13 - EKG Interpretation EKG: v paced. No ST changes. FMR H&P: A/P - Problem List (1) Intractable nausea and vomiting Current Visit: Yes Status: Acute Code(s): R11.2 - NAUSEA WITH VOMITING, UNSPECIFIED (2) Vertigo Current Visit: No Status: Acute Code(s): R42 - DIZZINESS AND GIDDINESS (3) Elevated troponin Current Visit: Yes Status: Acute Code(s): R79.89 - OTHER SPECIFIED ABNORMAL FINDINGS OF BLOOD CHEMISTRY (4) HTN (hypertension) Current Visit: No Status: Acute Code(s): I10 - ESSENTIAL (PRIMARY) HYPERTENSION (5) Hypothyroid Current Visit: No Status: Acute Code(s): E03.9 - HYPOTHYROIDISM, UNSPECIFIED (6) Atrial arrhythmia Current Visit: Yes Status: Acute Code(s): I49.8 - OTHER SPECIFIED CARDIAC ARRHYTHMIAS - Plan 88 yo f with hx of BPPV admitted for intractable n/v 2/2 vertigo episode and an elevated troponin. 1.)Intractable n/v -2/2 vertigo -received benadryl, reglan, zofran, fluids in the ER -provided zofran, phenergan prn overnight as phenergan works well for her at home -mIVFs overnight -obs overnight 2.)BPPV- -provided meclizine prn for dizziness -see above 3.)Elevated troponin- -will trend -heart score of 3, I do not anticipate her needing a stress but will make NPO at midnight just in case the troponins rise -if negative x3, expect d/c in the am -if they trend to positive will transition to th lovenox and consult cardiology 4.)Hypothyroidism- -will restart home synthroid 5.)HTN- -will restart home losartan 6.)Hx of afib/a flutter -on eliquis, will hold overnight -restart upon discharge -with pacemaker Patty Holliday MD, PGY-3 Isabel Arechiga MD, PGY-1 DVT: SCDS DIET: NPO at midnight CODE: FULL CODE FMR H&P: Upper Level - Plan Date/Time: 07/21/19 2175 I, [], have evaluated this patient and agree with findings/plan as outlined by internal sales engineer resident. Pertinent changes/additions are listed here.
[2019-07-22] MEDS ORDERED: Nitroglycerin 0.4 MG TAB (25 Tab Bottle) PO PRN (00:08)
[2019-07-22] MEDS ORDERED: Ondansetron ODT 4 MG TAB PO PRN (00:08)
[2019-07-22] MEDS ORDERED: Ondansetron PF 4 MG/2 ML Vial IVP PRN (00:08)
[2019-07-22] MEDS ORDERED: Diazepam 2 MG TAB PO PRN (00:16)
[2019-07-22] MEDS ORDERED: Promethazine HCl 12.5 MG in Sodium Chloride 0.9% 50 ML IVPB PRN (00:35)
[2019-07-22] MEDS ORDERED: Promethazine 25 MG TAB PO PRN (00:35)
[2019-07-22] MEDS ORDERED: Meclizine HCl 12.5 MG TAB PO PRN (00:40)
[2019-07-22 01:07] LABS: Troponin I 0.021 ng/mL (< 0.028)
[2019-07-22] MEDS: Sodium Chloride 0.9% 1,000 ML IV SCH ×2 (02:15→11:40)
[2019-07-22 05:33] LABS: Band 4 % (5-11); Eosinophils 1 % (0-10); Hemoglobin 12.9 g/dL (12.0-16.0); Lymphocytes 15 % (21-51); MDiff Complete? YES; Mean Corpuscular HGB CONC 33.5 g/dL (32.0-36.0); Mean Corpuscular Hemoglobin 32.4 pg (27.0-31.0); Mean Corpuscular Volume 96.6 fL (78.0-98.0); Mean Platelet Volume 10.4 fL (7.4-10.4); Monocytes 6 % (0-10); Neutrophil 74 % (42-75); Platelet Count 57 thou/uL (130-400); Platelet Morphology Comment Appears Decreased; RBC Distribution Width 12.5 % (11.5-14.5); Red Blood Cell (RBC) Count 3.99 mill/uL (4.20-5.40)
[2019-07-22] MEDS: Levothyroxine Sodium 75 MCG TAB PO SCH ×2 (05:33→08:14)
[2019-07-22 05:40] LABS: ALT (SGPT) 16 U/L (8-55); AST (SGOT) 16 U/L (5-34); Albumin 3.7 g/dL (3.4-4.8); Alkaline Phosphatase 60 U/L (40-110); Anion Gap 10 mmol/L (10-20); BUN (Urea Nitrogen) 18 mg/dL (9.8-20.1); Calc. Creatinine Clearance 63 mL/min (70-130); Calcium 8.9 mg/dL (7.8-10.44); Carbon Dioxide 25 mmol/L (23-31); Cardiac Risk 4.5 (Less than 4.5); Chloride 105 mmol/L (98-107); Cholesterol 167 mg/dl (< 200 Desired); Estimated GFR-MDRD 83; Globulin 2.5 g/dL (2.4-3.5); Glucose 97 mg/dL (83-110); HDL Cholesterol 37 mg/dL (>60 Neg Risk); LDL Cholesterol, Calculated 119 mg/dL; Potassium 3.9 mmol/L (3.5-5.1); Protein, Total 6.2 g/dL (6.0-8.3); Sodium 136 mmol/L (136-145); Triglycerides 55 mg/dL (Less than 150)
[2019-07-22 05:44] LABS: Troponin I 0.022 ng/mL (< 0.028)
--- NOTE | 2019-07-22 05:55 | PDOC.FM ---
- Subjective Subjective: She states she slept overnight, denies nausea/dizziness today. Troponin trended downwards to normal limits overnight. - Objective Vital Signs & Weight: Vital Signs (12 hours) Temp Pulse Resp BP Pulse Ox 07/22/19 04:34 98.0 F 70 12 111/57 L 99 07/22/19 00:08 96 Weight Weight 67.041 kg Result Diagrams: 07/22/19 05:01 07/22/19 05:01 Phys Exam - Physical Examination Constitutional: NAD Respiratory: no wheezing, clear to auscultation bilateral Cardiovascular: RRR 1/6 systolic murmur Gastrointestinal: soft, non-tender, no distention Musculoskeletal: pulses present trace edema BLE Neurological: non-focal, moves all 4 limbs Psychiatric: normal affect, A&O x 3 Skin: normal turgor, cap refill <2 seconds Dx/Plan (1) Atrial arrhythmia Code(s): I49.8 - OTHER SPECIFIED CARDIAC ARRHYTHMIAS Status: Chronic (2) Elevated troponin Code(s): R79.89 - OTHER SPECIFIED ABNORMAL FINDINGS OF BLOOD CHEMISTRY Status : Acute (3) Intractable nausea and vomiting Code(s): R11.2 - NAUSEA WITH VOMITING, UNSPECIFIED Status: Acute (4) Afib Code(s): I48.91 - UNSPECIFIED ATRIAL FIBRILLATION Status: Chronic (5) HTN (hypertension) Code(s): I10 - ESSENTIAL (PRIMARY) HYPERTENSION Status: Chronic (6) Hypothyroid Code(s): E03.9 - HYPOTHYROIDISM, UNSPECIFIED Status: Chronic (7) Vertigo Code(s): R42 - DIZZINESS AND GIDDINESS Status: Acute - Plan Plan: 88 yo f with hx of BPPV admitted for intractable n/v 2/2 vertigo episode and an elevated troponin. 1.) Intractable nausea and vomiting 2/2 BPPV -received benadryl, reglan, zofran, fluids in the ER -provided zofran, phenergan prn overnight as phenergan works well for her at home -mIVFs overnight -improved, likely DC to home otday 2.) BPPV -provided meclizine prn for dizziness 3.)Elevated troponin, down trending -heart score of 3 -trended to normal -Likely dc to home today 4.) Hypothyroidism -will restart home synthroid -TSH pending 5.) HTN -continue home losartan 6.)Hx of afib/a flutter s/p pacemaker -on eliquis, held overnight -restart today DVT: SCDS DIET: HH CODE: FULL CODE
[2019-07-22] MEDS: Furosemide 20 MG TAB PO SCH ×2 (08:14→08:19)
[2019-07-22] MEDS: Losartan 25 MG TAB PO SCH ×2 (08:15→08:18)
[2019-07-22 08:17] VITALS: BP 108/56; TEMP 98.4; BMI 24.9
[2019-07-22] MEDS ORDERED: FLU VACC TS2019-20(65YR UP)/PF 180 MCG/0.5 ML SYRINGE IM ONE (09:00)
[2019-07-22] MEDS ORDERED: Losartan 25 MG TAB PO SCH (09:00)
--- NOTE | 2019-07-22 12:36 | HP ---
Please see the history and physical done by Dr. Arechiga, for which I agree, and the progress note by Dr. Bales, for which I agree. The patient was seen, evaluated, discussed, and examined with the residents by bedside. HISTORY OF PRESENT ILLNESS: An 88-year-old female does have history of benign positional vertigo before. She made a sound like someone told her it because her vertebral arteries were basically mayelin having issues. A pretty classic benign positional vertigo hit her with a sudden head movement and then room spinning, pretty classic vertigo with vomiting. Did not have any home as-needed medicines. Came to the emergency room, was given Zofran, fluids, and Valium and has already improved. She has had no more vomiting or dizziness since she has been here. ALLERGIES: ALL PER THE RESIDENT'S HISTORY AND PHYSICAL FOR WHICH I AGREE. HOME MEDICATIONS: All per the resident's history and physical for which I agree. PAST MEDICAL HISTORY: All per the resident's history and physical for which I agree. PAST SURGICAL HISTORY: All per the resident's history and physical for which I agree. FAMILY HISTORY: All per the resident's history and physical for which I agree. SOCIAL HISTORY: All per the resident's history and physical for which I agree. REVIEW OF SYSTEMS: All per the resident's history and physical for which I agree. PHYSICAL EXAMINATION: VITAL SIGNS: Stable. GENERAL: No apparent distress. Alert and oriented x3. HEENT: No nystagmus. Rest of ENT was good. CHEST: Clear. CARDIAC: Regular rate and rhythm. NEUROLOGIC: Rest of neurologic exam looks normal. LABORATORY DATA: Blood workup significant for slightly low platelets of 67, but otherwise electrolytes look fairly normal without any major abnormalities. ASSESSMENT AND PLAN: Benign positional vertigo, now drastically improved. Plan is to send her out with plenty of fluids as needed and Phenergan as this has worked for her before. Will notify us as an outpatient. If she worsens, may increase her Valium use at that point. Job ID: [id number]
--- NOTE | 2019-07-23 02:34 | DIS ---
DATE OF ADMISSION: 07/21/2019 DATE OF DISCHARGE: 07/22/2019 ADMITTING ATTENDING: Dr. Wolfe. DISCHARGE ATTENDING: Dr. Wolfe. RESIDENT: Sandra Bales MD CONSULTS: None. PROCEDURES: Chest x-ray on 07/21/2019, no acute findings. PRIMARY DIAGNOSES: Intractable nausea and vomiting secondary to benign positional vertigo. SECONDARY DIAGNOSES: 1. Benign positional vertigo. 2. Indeterminate troponin, down trending. 3. Hypothyroidism. 4. Hypertension. 5. History of atrial fibrillation/atrial flutter, status post pacemaker. DISCHARGE MEDICATIONS: 1. Eliquis one tab p.o. b.i.d. 2. Lasix 1 tab p.o. daily. 3. Levothyroxine 75 mcg daily. 4. Losartan 25 mg two tablets p.o. daily. 5. Phenergan 25 mg tab p.o. q.6 hours p.r.n. for nausea or vomiting. DISCONTINUED MEDICATIONS: None. HISTORY OF PRESENT ILLNESS AND HOSPITAL COURSE: An 88-year-old female presented with vertigo that started at 7:00 p.m. and shortly after, she started vomiting. She states that she was too nauseous to be able to take the Phenergan. She vomited multiple times over 4 hours. Her vomit was non-bloody and non-bilious. She denied headaches. She was given Zofran, Benadryl, and Reglan in the ER and was feeling better. She reports she has had this in the past, and Phenergan has helped. In the ED, her labs were significant for CK-MB of 7.6 and troponin of 0.032, that on repeat trended downwards to 0.021. Thyroid was checked and it was normal at 1.149. EKG showed ventricular pacing with no ST changes. The patient was admitted overnight for observation and given IV fluids. Her nausea and vomiting resolved. The patient still had some dizziness with quick movements, but was feeling much better at discharge. All of her vitals were stable at discharge. DISPOSITION: Stable. DISCHARGE INSTRUCTIONS: 1. Location: Home. 2. Diet: Heart healthy. 3. Activity: As tolerated. 4. Follow up with PCP, Dr. Rea within 1 week. Job ID: [id number]
--- NOTE | 2019-07-29 10:16 | EKG ---
Test Reason : Blood Pressure : / mmHG Vent. Rate : 070 BPM Atrial Rate : 072 BPM P-R Int : 000 ms QRS Dur : 176 ms QT Int : 486 ms P-R-T Axes : 117 -65 107 degrees QTc Int : 524 ms Ventricular-paced rhythm Abnormal ECG Confirmed by ALMITA JONES M.D. ([id number]), design editor MY MENDEZ ([id number]) on 07/29/2019 10:16:06 AM Referred By: Confirmed By:ALMITA JONES M.D.
== END 2019-07-22 12:43 | disposition home or self-care (01) ==
LOC: ERS 20:38 → 2SW 23:04
PROVIDERS: ADMIT Family Medicine; ATTEND Family Medicine
DX: H81.10 Benign paroxysmal vertigo, unspecified ear (principal); R79.89 Other specified abnormal findings of blood chemistry; I10 Essential (primary) hypertension; I48.91 Unspecified atrial fibrillation; E89.0 Postprocedural hypothyroidism; Z95.0 Presence of cardiac pacemaker; Z79.01 Long term (current) use of anticoagulants; Z79.899 Other long term (current) drug therapy; Z88.5 Allergy status to narcotic agent; Z88.0 Allergy status to penicillin; Z88.1 Allergy status to other antibiotic agents; Z88.2 Allergy status to sulfonamides; Z85.3 Personal history of malignant neoplasm of breast; Z98.890 Other specified postprocedural states
CPT/HCPCS: 71045; 80053 ×2; 80061; 82553; 83690; 84443; 84484 ×3; 85007; 85025; 85027; 93005; 94760; 96365; 96375; 99285; G0378 ×3; 36415; J1200; J2405; J2765; Q0163

== ENCOUNTER 2019-10-27 13:25 | Outpatient (CLI) | payer MEDICARE ==
--- NOTE | 2019-10-27 16:08 | CT ---
EXAM: CERVICAL SPINE CT SCAN WITHOUT IV CONTRAST: 10/27/19 HISTORY: Physical deconditioning. Dizziness, tingling in her hands. COMPARISON: 07/28/18. FINDINGS: No evidence for acute fracture or facet dislocation. Generalized disc osteophytosis and facet arthros is. C2-3 disc: No significant associated stenosis. C3-4 disc: Minimal disc osteophytosis with moderate bilateral foraminal stenosis and slight thinning of the lateral recesses. C4-5 disc: Severe central canal and lateral recess stenosis from disc osteophytosis and severe bilate ral foraminal stenosis. C5-6 disc: Disc osteophytosis with mild central canal and moderate to severe lateral recess stenosis and foraminal stenosis. C6-7 disc: Osteophytosis with thinning of the right lateral recess and right foraminal stenosis. C7-T1 disc: No significant canal or foraminal stenosis. IMPRESSION: No fracture or dislocation. Multilevel variable severity central canal, lateral recess, and foraminal stenosis as above. POS: [facility]RE
== END 2019-10-27 13:26 | disposition home or self-care (01) ==
LOC: SCSCT 13:25
PROVIDERS: ATTEND Internal Medicine
DX: R53.81 Other malaise (principal); M48.02 Spinal stenosis, cervical region
CPT/HCPCS: 72125

== ENCOUNTER 2019-11-20 05:57 | Observation (INO) | payer MEDICARE ==
[2019-11-20] MEDS ORDERED: Ondansetron PF 4 MG/2 ML Vial ONE (06:27)
[2019-11-20 06:36] LABS: #Basophils 0.1 thou/uL (0.0-0.2); #Eosinphils 0.1 thou/uL (0.0-0.7); #Lymphocytes 1.1 thou/uL (1.20-3.40); #Monocytes 0.4 thou/uL (0.11-0.59); #Neutrophils 5.3 thou/uL (1.40-6.50); %Basophils 0.8 % (0.0-1.0); %Eosinophils 0.9 % (0.0-10.0); %Lymphocytes 15.4 % (21.0-51.0); %Monocytes 6.1 % (0.0-10.0); %Neutrophils 76.9 % (42.0-75.0); Hemoglobin 15.4 g/dL (12.0-16.0); Mean Corpuscular HGB CONC 33.3 g/dL (32.0-36.0); Mean Platelet Volume 12.2 fL (7.4-10.4); Platelet Count 56 thou/uL (130-400); RBC Distribution Width 11.9 % (11.5-14.5); Red Blood Cell (RBC) Count 4.82 mill/uL (4.20-5.40); White Blood Cell (WBC) Count 6.9 thou/uL (4.8-10.8)
[2019-11-20 06:56] LABS: ALT (SGPT) 27 U/L (8-55); AST (SGOT) 27 U/L (5-34); Albumin 4.6 g/dL (3.4-4.8); Alkaline Phosphatase 68 U/L (40-110); Anion Gap 16 mmol/L (10-20); BUN (Urea Nitrogen) 22 mg/dL (9.8-20.1); Bilirubin, Total 0.8 mg/dL (0.2-1.2); Calc. Creatinine Clearance 0 mL/min (70-130); Calcium 10.5 mg/dL (7.8-10.44); Carbon Dioxide 22 mmol/L (23-31); Chloride 101 mmol/L (98-107); Estimated GFR-MDRD 70; Globulin 3.4 g/dL (2.4-3.5); Glucose 175 mg/dL (83-110); Sodium 135 mmol/L (136-145)
[2019-11-20] MEDS ORDERED: Meclizine HCl 25 MG TAB ONE (06:58)
[2019-11-20] MEDS ORDERED: Diazepam 5 MG TAB ONE (06:58)
--- NOTE | 2019-11-20 07:42 | RAD ---
EXAM: Single view of the chest HISTORY: Vertigo COMPARISON: 07/21/2019 FINDINGS: Single view of the chest shows an enlarged but stable cardiomediastinal silhouette. The pa cemaker is unchanged in position. There is a calcified right hilar lymph node. There is no evidence of consolidation, mass, or pleural effusion. The bones are unremarkable. IMPRESSION: Cardiomegaly without evidence of acute cardiopulmonary disease
[2019-11-20] MEDS ORDERED: Lorazepam 2 MG/ML VIAL ONE (07:53)
--- NOTE | 2019-11-20 09:09 | CT ---
EXAM: CT ABDOMEN AND PELVIS HISTORY: Headache x2 days. Nausea and vomiting. COMPARISON: None. Procedure: Multiple contiguous axial images were obtained and a CT of the abdomen and pelvis with IV contrast. C oronal reformats were performed. FINDINGS: Lower Chest: Chronic changes in the lung bases Vessels: Atherosclerosis of a nonaneurysmal aorta. Heart: Cardiomegaly. Mitral valve calcification. Trace amount of pericardial fluid Abdomen: Portal vein:Patent Gallbladder: Cholelithiasis, without evidence of cholecystitis Liver: Diffuse hypoattenuation due to hepatic steatosis. Pancreas: 2 separate hypodensities involving the body the pancreas measuring 1.4 and 1.0 cm. Incomple te evaluation. Spleen: within normal limits. Adrenals: within normal limits. Kidneys: Symmetric enhancement. No obstructive uropathy. Peritoneum: No ascites or free air, no fluid collection. Bowel: Limited evaluation due to the lack of oral contrast administration. No evidence of bowel obstr uction. Ileocecal junction is unremarkable. Appendix is not appreciated. No secondary signs of appendicitis. Scattered fecal material in a nondistended, nondilated colon. Diverticulosis in the lef t hemicolon. No diverticulitis. Mesentery and Retroperitoneum: No enlarged mesenteric or retroperitoneal lymph nodes. Abdominal Wall: Diastases of the abdominal musculature. Small umbilical hernia containing mesenteric fat in segment of small bowel without brittany incarceration or obstruction. Pelvis: Reproductive Organs: Surgically absent uterus Pelvis: No mass, lymphadenopathy, free air or free fluid. Bladder: within normal limits. Bones: Diffuse bone demineralization. No lytic or blastic lesions. IMPRESSION: 1. No acute abnormality in the abdomen or pelvis. 2. Ventral abdominal wall hernia containing mesenteric fat and small segment of small bowel. No assoc iated incarceration or bowel obstruction. 3. Cholelithiasis without evidence of cholecystitis. 4. Hypodensities involving the pancreas as described above. Characterization is incomplete. Pancreas protocol CT can be performed nonemergent.
--- NOTE | 2019-11-20 09:33 | CT ---
CT BRAIN WITHOUT CONTRAST: Date: 11/20/2019 HISTORY: Headache and vertigo. COMPARISON: 10/02/2018. FINDINGS: No evidence of acute infarct, hemorrhage, midline shift, or abnormal extra-axial fluid collections ar e seen. The ventricular size is appropriate and the basilar cisterns are patent. The bony calvarium i s intact. There is mucosal disease in the left posterior ethmoid air cells. IMPRESSION: No CT evidence of acute intracranial process. POS: [facility]
[2019-11-20] MEDS ORDERED: Iopamidol-370 76% 500 ML 1 ML ONE (09:48)
--- NOTE | 2019-11-20 11:36 | PDOC.FPRHP ---
- History of Present Illness Chief Complaint: Dizziness History of Present Illness: Ms. Rea is a pleasant 89yoF who presents to the ED for evaluation of worsening nausea, vomiting, and dizziness. She has had spells similar to this in the past. She states it started this morning at 2:30am and progressively worsened. She has had several episodes of emesis. At this time she states she is too sleepy to be answering all of these questions. Upon review of the ER medications, she just received 0.5mg lorazepam. ED Course: NS 500mL, Lorazepam 0.5mg, Meclizine 25mg, Zofran 4mg - Allergies/Adverse Reactions Allergies Allergy/AdvReac Type Severity Reaction Status Date / Time codeine Allergy Verified 07/30/19 21:20 morphine Allergy Hives Verified 07/30/19 21:20 Penicillins Allergy Verified 07/30/19 21:20 sulfamethoxazole Allergy Verified 07/30/19 21:20 [From Bactrim] tetracycline Allergy Verified 07/30/19 21:20 trimethoprim [From Bactrim] Allergy Verified 07/30/19 21:20 - Home Medications Medication Instructions Recorded Confirmed Type Apixaban [Eliquis] 1 tab PO BID 04/02/14 11/20/19 History Levothyroxine Sodium [Synthroid] 1 tab PO DAILY 04/02/14 11/20/19 History Losartan [Cozaar] 1 tab PO DAILY 09/19/18 11/20/19 History Furosemide [Lasix] 1 tab PO DAILY 07/22/19 11/20/19 History Promethazine [Phenergan] 25 mg PO Q6H PRN #20 tab 07/22/19 11/20/19 Rx - History PMHx:Vertigo/BPP, Hx of atrial flutter/a fib, now with a pacemaker, Mitral regurgitation, Hypothyroidism, HTN, Macular degeneration PSHx: Left lumpectomy with lymph nodes Bladder surgery Hernia repair Partial hysterectomy Thyroidectomy, partial Skin cancer removal Pacemaker placement FHx: non-contributory Social: denies hx of drug-use, alcohol, smoking - Review of Systems General: denies: fever/chills, weight/appetite/sleep changes, fatigue Eyes: denies: eye pain, vision changes ENT: denies: nasal congestion, rhinorrhea Respiratory: denies: cough, congestion, shortness of breath Cardiovascular: denies: chest pain, palpitation, edema Gastrointestinal: reports: nausea, vomiting. denies: diarrhea, constipation, abdominal pain Genitourinary: denies: incontinence, dysuria Skin: denies: rashes, lesions Musculoskeletal: denies: pain, tenderness Neurological: reports: weakness, other (dizziness). denies: numbness, syncope, seizure - Vital signs BP: 147/72, Pulse: 70, Resp: 20 (Non-Labored), Temp: 98.2 (Oral), Pain: SLEEP, O2 sat: 99 on (Room Air) Weight: 67kg - Physical Exam Constitutional: NAD, well developed -Constitutional: Drowsy HEENT: normocephalic and atraumatic, PERRLA, EOMI, conjunctiva clear, grossly normal vision, grossly normal hearing, MMM Neck: supple, trachea midline Heart: RRR, normal S1/S2 -Heart: Holosystolic murmur 3/6 Lungs: CTAB, no respiratory distress Abdomen: soft, non-tender Musculoskeletal: normal structure, normal tone Neurological: no focal deficit, CN II-XII intact, normal sensation Skin: no rash/lesions, good turgor Heme/Lymphatic: no unusual bruising or bleeding, no purpura, no petechia Psychiatric: normal mood and affect, good judgment and insight, intact recent and remote memory FMR H&P: Results - Labs Result Diagrams: 11/20/19 06:21 11/20/19 06:21 Lab results: WBC 6.9 thou/uL (4.8-10.8) 11/20/19 06:21 Hgb 15.4 g/dL (12.0-16.0) 11/20/19 06:21 Hct 46.3 % (36.0-47.0) 11/20/19 06:21 MCV 96.0 fL (78.0-98.0) 11/20/19 06:21 Plt Count 56 thou/uL (130-400) L 11/20/19 06:21 Neutrophils % 76.9 % (42.0-75.0) H 11/20/19 06:21 Sodium 135 mmol/L (136-145) L 11/20/19 06:21 Potassium 4.0 mmol/L (3.5-5.1) 11/20/19 06:21 Chloride 101 mmol/L (98-107) 11/20/19 06:21 Carbon Dioxide 22 mmol/L (23-31) L 11/20/19 06:21 BUN 22 mg/dL (9.8-20.1) H 11/20/19 06:21 Creatinine 0.78 mg/dL (0.6-1.1) 11/20/19 06:21 Glucose 175 mg/dL (83-110) H 11/20/19 06:21 Calcium 10.5 mg/dL (7.8-10.44) H 11/20/19 06:21 Total Bilirubin 0.8 mg/dL (0.2-1.2) 11/20/19 06:21 AST 27 U/L (5-34) 11/20/19 06:21 ALT 27 U/L (8-55) 11/20/19 06:21 Alkaline Phosphatase 68 U/L (40-110) 11/20/19 06:21 Serum Total Protein 8.0 g/dL (6.0-8.3) 11/20/19 06:21 Albumin 4.6 g/dL (3.4-4.8) 11/20/19 06:21 Lipase 42 U/L (8-78) 11/20/19 06:21 - EKG Interpretation EKG: Sinus tachycardia - Radiology Interpretation CT scan - head Status: report reviewed by me (IMPRESSION: No CT evidence of acute intracranial process.) CT scan - abdomen Status: report reviewed by me (1. No acute abnormality in the abdomen or pelvis. 2. Ventral abdominal wall hernia containing mesenteric fat and small segment of small bowel. No associated incarceration or bowel obstruction. 3. Cholelithiasis without evidence of cholecystitis. 4. Hypodensities involving the pancreas as described above. Characterization is incomplete. Pancreas protocol CT can be performed nonemergent.) Chest x-ray Status: report reviewed by me (IMPRESSION: Cardiomegaly without evidence of acute cardiopulmonary disease.) FMR H&P: A/P - Problem List (1) Intractable nausea and vomiting Current Visit: No Status: Acute Code(s): R11.2 - NAUSEA WITH VOMITING, UNSPECIFIED (2) Vertigo Current Visit: No Status: Acute Code(s): R42 - DIZZINESS AND GIDDINESS (3) Atrial arrhythmia Current Visit: No Status: Chronic Code(s): I49.8 - OTHER SPECIFIED CARDIAC ARRHYTHMIAS (4) HTN (hypertension) Current Visit: No Status: Chronic Code(s): I10 - ESSENTIAL (PRIMARY) HYPERTENSION (5) Hypothyroid Current Visit: No Status: Chronic Code(s): E03.9 - HYPOTHYROIDISM, UNSPECIFIED - Plan TIA rule out -Will monitor neurological function. -CT head negative -Serial [facility] -MRI Pending BPPV -Usually takes phenergan at home with relief. Will give schedule zofran and prn phenergan -meclizine prn for dizziness -moderate IV fluids Hypothyroidism -will restart home synthroid HTN -will restart home losartan Hx of afib/a flutter -on eliquis 5mg BID Incidental pancreatic hypodensities -2 separate hypodensities noted in the body of the pancreas. May recommend follow up imaging after discussion with patient. DISPO: Stable, observation overnight. DVT: SCDS DIET: HH CODE: FULL CODE FMR H&P: Upper Level - Plan Date/Time: 11/20/19 9238 I, [], have evaluated this patient and agree with findings/plan as outlined by internet sales director resident. Pertinent changes/additions are listed here. Addendum - Attending - Attending Attestation Date/Time: 11/20/19 4423 I personally evaluated the patient and discussed the management with Dr. Fournier. I agree with the History, Examination, Assessment and Plan documented above with any addition or exceptions noted below. Unable to perform MRI 2/2 pacemaker. Tx symptoms. monitor overnight. patient somnolent at time of exam but had received ativan in ER. F/U mentation and sx later. Calcium slightly elevated but do not suspect this is related to her current illness. Continue to trend.
[2019-11-20] MEDS ORDERED: Ondansetron PF 4 MG/2 ML Vial IVP PRN (12:16)
[2019-11-20] MEDS ORDERED: Calcium Carbonate 500 MG ChewTAB PO PRN (12:16)
[2019-11-20] MEDS ORDERED: Acetaminophen 325 MG TAB PO PRN (12:16)
[2019-11-20] MEDS ORDERED: Meclizine HCl 12.5 MG TAB PO PRN (12:56)
[2019-11-20] MEDS ORDERED: Promethazine HCl 25 MG/ML VIAL IM/IV PRN (12:56)
[2019-11-20 13:42] LABS: Bacteria/HPF None Seen HPF (None Seen); Bilirubin Negative (Negative); Blood, Urine Trace (Negative); Clarity Clear (Clear); Glucose, Urine (Dipstick) Normal (Negative); Ketone, Urine Negative (Negative); Leukocyte Negative Leu/uL (Negative); Nitrite Negative (Negative); Protein, Urine (Dipstick) 10 mg/dL (Neg-Trace); Squamous Epithelial 0-3 HPF (0-3); Urobilinogen Normal mg/dL (Less than 2); WBC/HPF 0-3 HPF (0-3)
[2019-11-20 13:44] LABS: Specific Gravity, Urine 1.049 (1.002-1.036)
[2019-11-20] MEDS: Lactated Ringer's 1,000 ML IV SCH (16:04)
[2019-11-20] MEDS: Ondansetron PF 4 MG/2 ML Vial IVP SCH ×3 (16:11→21:15)
[2019-11-20] MEDS: Apixaban 5 MG TAB PO SCH (21:32)
[2019-11-21] MEDS: Lactated Ringer's 1,000 ML IV SCH ×2 (04:57→13:34)
[2019-11-21 05:38] LABS: Anion Gap 9 mmol/L (10-20); BUN (Urea Nitrogen) 17 mg/dL (9.8-20.1); Calc. Creatinine Clearance 2 mL/min (70-130); Calcium 9.1 mg/dL (7.8-10.44); Carbon Dioxide 26 mmol/L (23-31); Cardiac Risk 5.1 (Less than 4.5); Chloride 106 mmol/L (98-107); Cholesterol 157 mg/dl (< 200 Desired); Estimated GFR-MDRD 65; Glucose 92 mg/dL (83-110); HDL Cholesterol 31 mg/dL (>60 Neg Risk); LDL Cholesterol, Calculated 108 mg/dL; Sodium 137 mmol/L (136-145); Triglycerides 88 mg/dL (Less than 150)
[2019-11-21] MEDS ORDERED: Ondansetron PF 4 MG/2 ML Vial IVP PRN (05:44)
--- NOTE | 2019-11-21 05:44 | PDOC.FM ---
- Subjective Subjective: Feeling better this morning. States she is only unsteady when ambulating. Her dizziness and nausea have resolved. She reports having loose stools for a few days prior to admission. - Objective MAR Reviewed: Yes Vital Signs & Weight: Vital Signs (12 hours) Temp Pulse Resp BP Pulse Ox 11/21/19 04:00 98.1 F 68 16 99/46 L 92 L 11/21/19 00:00 70 18 100/55 L 93 L 11/20/19 20:32 97.9 F 69 14 98/45 L 94 L Weight Weight 2.381 kg I&O: 11/19/19 11/20/19 11/21/19 06:59 06:59 06:59 Intake Total 277 Balance 277 Result Diagrams: 11/20/19 06:21 11/21/19 04:51 Phys Exam - Physical Examination Constitutional: NAD HEENT: moist MMs Neck: supple, full ROM Respiratory: no wheezing, no rales, no rhonchi, clear to auscultation bilateral Cardiovascular: RRR, no rub Murmur present Gastrointestinal: soft, non-tender Musculoskeletal: pulses present Neurological: non-focal, moves all 4 limbs Psychiatric: A&O x 3 Skin: no rash, normal turgor Dx/Plan (1) Intractable nausea and vomiting Code(s): R11.2 - NAUSEA WITH VOMITING, UNSPECIFIED Status: Acute (2) Vertigo Code(s): R42 - DIZZINESS AND GIDDINESS Status: Acute (3) Atrial arrhythmia Code(s): I49.8 - OTHER SPECIFIED CARDIAC ARRHYTHMIAS Status: Chronic (4) HTN (hypertension) Code(s): I10 - ESSENTIAL (PRIMARY) HYPERTENSION Status: Chronic (5) Hypothyroid Code(s): E03.9 - HYPOTHYROIDISM, UNSPECIFIED Status: Chronic - Plan Plan: TIA rule out -Will monitor neurological function. -CT head negative -Serial [facility] -unable to obtain MRI 2/2 pacemaker. -Symptoms likely more related to vertigo. BPPV -Usually takes phenergan at home with relief. Will give schedule zofran and prn phenergan -meclizine prn for dizziness -moderate IV fluids Hypothyroidism -will restart home synthroid HTN -will restart home losartan Hx of afib/a flutter -on eliquis 5mg BID -pacemaker in place. Incidental pancreatic hypodensities -2 separate hypodensities noted in the body of the pancreas. May recommend follow up imaging after discussion with patient. DISPO: Stable, observation overnight. DVT: SCDS DIET: HH CODE: FULL CODE Addendum - Attending - Attending Attestation Date/Time: 11/21/19 3025 I personally evaluated the patient and discussed the management with Dr. Fournier. I agree with the History, Examination, Assessment and Plan documented above with any addition or exceptions noted below. N/V and dizziness resolved. PT to eval then can d/c pending recs.
[2019-11-21] MEDS ORDERED: Levothyroxine Sodium 75 MCG TAB PO SCH (06:00)
[2019-11-21 07:24] VITALS: TEMP 98.7
[2019-11-21] MEDS: Furosemide 20 MG TAB PO SCH ×2 (08:30→08:37)
[2019-11-21] MEDS: Apixaban 5 MG TAB PO SCH (08:30)
[2019-11-21] MEDS: Losartan 25 MG TAB PO SCH ×2 (08:30→08:35)
[2019-11-21 10:43] VITALS: BMI 25.2
[2019-11-21 12:03] VITALS: BP 135/62
[2019-11-21] MEDS ORDERED: Prevnar 13-Val Conj/PF 0.5 ML SYRINGE IM ONE (16:15)
--- NOTE | 2019-11-22 11:38 | DIS ---
DATE OF ADMISSION: 11/20/2019 DATE OF DISCHARGE: 11/21/2019 RESIDENT: Amanda Fournier MD ADMITTING ATTENDING: Krish Sloan MD DISCHARGE ATTENDING: Krish Sloan MD CONSULTS: None. PROCEDURES: None. PRIMARY DIAGNOSIS: Vertigo. SECONDARY DIAGNOSES: 1. Nausea and vomiting. 2. Transient ischemic attack, rule out. 3. Hypothyroidism. 4. Hypertension. 5. History of atrial fibrillation/atrial flutter. 6. Incidental pancreatic hypodensity. DISCHARGE MEDICATIONS: 1. Levothyroxine 75 mcg. 2. Eliquis 5 mg b.i.d. 3. Losartan 25 mg. 4. Lasix 20 mg. 5. Phenergan p.r.n. 6. Zofran 4 mg ODT p.r.n. DISCONTINUED MEDICATIONS: None. HISTORY OF PRESENT ILLNESS/HOSPITAL COURSE: Ms. Rea is a pleasant 89-year-old lady who presents to the ER after waking up at approximately 2:30 in the morning on the day of admission with worsening nausea, vomiting and dizziness. She frequently has episodes of vertigo similar to this. She reports she has been having loose bowel movements for several days prior to admission. She felt that she was dehydrated. On arrival to the ER, she was given a normal saline bolus, meclizine, Zofran and lorazepam, which resolved her nausea and vomiting. Overnight, she required no further nausea medication. A CT of her head was negative for acute stroke. We attempted to obtain an MRI; however her pacemaker is not compatible with the machine. On CT of her abdomen, there were 2 separate hypodensities noted in the body of the pancreas. We recommend following up with GI upon discharge. On the day of discharge, she was evaluated by PT and they recommended [facility] versus home health with PT. The patient stated she already had home health set up with physical therapy and is eager to be discharged home. DISCHARGE DISPOSITION: Stable. DISCHARGE INSTRUCTIONS: Location: Home. Diet: Heart healthy. Activity: Ad patrick. Followup: Follow up with primary care physician within 7 days. Job ID: [id number]
== END 2019-11-21 14:50 | disposition home or self-care (01) ==
LOC: ERS 05:57 → ERHOLD 09:59 → 2SE 09:59 → INTOOBSV 09:59 → 2SE 15:09
PROVIDERS: ADMIT Family Medicine; ATTEND Family Medicine
DX: R42 Dizziness and giddiness (principal); R11.2 Nausea with vomiting, unspecified; E03.9 Hypothyroidism, unspecified; I10 Essential (primary) hypertension; I48.91 Unspecified atrial fibrillation; I48.92 Unspecified atrial flutter; K80.20 Calculus of gallbladder without cholecystitis without obstruction; Z79.01 Long term (current) use of anticoagulants; Z79.899 Other long term (current) drug therapy; Z88.0 Allergy status to penicillin; Z88.1 Allergy status to other antibiotic agents; Z88.5 Allergy status to narcotic agent; Z95.0 Presence of cardiac pacemaker
CPT/HCPCS: 36415; 70450; 71045; 74177; 80048; 80053; 80061; 81003; 81015; 83690; 84484; 85025; 93005; 96361; 96374; 96375; G0378; J2060; J2405; Q9967

== ENCOUNTER 2020-02-15 14:57 | Outpatient (CLI) | payer MEDICARE ==
[~2020-02-15 14:57] MED LIST: Iopamidol 370 76% 100 ML VIAL ONE
--- NOTE | 2020-02-15 16:24 | CT ---
CT the abdomen with and without IV contrast INDICATION: Pancreatic masses Comparison CT of the abdomen and pelvis with contrast dated November 20, 2019 FINDINGS: There is a cystic lesion involving the pancreatic head on image 54 series 5 measuring 1.1 c m. There is a cystic lesion involving the posterior pancreatic body on image 37 series 5 measuring 6 mm. There is a 7.7 mm cystic lesion involving the posterior pancreatic body on image 34 series 5. N o main pancreatic ductal dilatation is evident. No pathologically enlarged lymph nodes are evident. Lung bases are clear. There are calcified granuloma within the liver and spleen. No suspicious enhanc ing lesion is seen involving the liver. There are layered gallstones within the gallbladder. The adrenal glands appear within normal limits. No focal renal lesion is evident. There are mild vascular calcifications seen involving the visualized vasculature. There is levoscoliosis of the lumbar spine. There is diffuse osteopenia. There is scattered degenerative and osteoarthritic change. No def inite acute osseous abnormality is evident. There is partial visualization of cardiac pacemaker leads within the heart. There is moderate cardiomegaly. IMPRESSION: 1. Small cystic lesions within the pancreatic head and body without associated main pancreatic duct d ilatation may reflect small serous cystadenoma or possibly small sidebranch IPMN lesions. A follow-up CT of the abdomen with and without contrast in 6 months is recommended to document stabilit y. 2. Cholelithiasis 3. Findings of prior granulomatous disease. 4. Moderate cardiomegaly
== END 2020-02-15 14:58 | disposition home or self-care (01) ==
LOC: BICCT 14:57
PROVIDERS: ATTEND Physician Assistant Medical
DX: R19.4 Change in bowel habit (principal); K57.30 Diverticulosis of large intestine without perforation or abscess without bleeding; K92.1 Melena; R93.3 Abnormal findings on diagnostic imaging of other parts of digestive tract; K86.89 Other specified diseases of pancreas; K80.20 Calculus of gallbladder without cholecystitis without obstruction; I51.7 Cardiomegaly
CPT/HCPCS: 74170; 82565; Q9967

== ENCOUNTER 2020-06-12 10:16 | Outpatient (CLI) | payer OTHER | END 2020-06-12 10:17 | disposition home or self-care (01) | LOC: DTY/OP 10:16 | PROVIDERS: ATTEND Nurse Practitioner Adult Health | DX: I50.32 Chronic diastolic (congestive) heart failure (principal); K52.9 Noninfective gastroenteritis and colitis, unspecified | CPT/HCPCS: 97802 ==

== ENCOUNTER 2020-06-13 14:57 | Outpatient (CLI) | payer MEDICARE ==
--- NOTE | 2020-06-13 15:58 | MMO ---
Bilateral MAMMO Bilat Screen [facility]. CLINICAL HISTORY: Patient is 89 years old and is seen for screening. The patient has no family history of breast cancer. The patient has a history of malignant (generic) in the left breast at age 68. 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 VIEWS: The views performed were: bilateral craniocaudal with tomosynthesis and bilateral mediolateral oblique with tomosynthesis. FILMS COMPARED: The present examination has been compared to prior imaging studies performed at [facility] on 06/12/2019, at [facility] on 01/18/2013, and at [facility] on 07/23/2014 and 05/19/2017. This study has been interpreted with the assistance of computer-aided detection. MAMMOGRAM FINDINGS: There are scattered fibroglandular densities. Benign calcifications are noted bilaterally. Numerous new skin calcs are seen in the right posterior lower outer-mid breast. There are no suspicious masses, suspicious calcifications, or new areas of architectural distortion. IMPRESSION: THERE IS NO MAMMOGRAPHIC EVIDENCE OF MALIGNANCY. A ROUTINE FOLLOW-UP MAMMOGRAM IN 1 YEAR IS RECOMMENDED. THE RESULTS OF THIS EXAM WERE SENT TO THE PATIENT. ACR BI-RADS Category 2 - Benign finding MAMMOGRAPHY NOTE: 1. A negative mammogram report should not delay a biopsy if a dominant of clinically suspicious mass is present. 2. Approximately 10% to 15% of breast cancers are not detected by mammography. 3. Adenosis and dense breasts may obscure an underlying neoplasm. Reported by: KRISTIE HEWITT MD Electonically Signed: [id number]
--- NOTE | 2020-06-13 16:38 | RAD ---
PA AND LATERAL VIEWS CHEST: DATE: 06/13/2020 HISTORY: Hypertension. COMPARISON: 11/20/2019. FINDINGS: The heart is enlarged. The aorta is tortuous. 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 Calcified right hilar lymph node is again seen. The lungs are well expanded without lobar consolidation, pneum othoraces, brittany pulmonary edema, or pleural effusions are seen. IMPRESSION: Stable exam. No acute process. . POS: OFF
== END 2020-06-13 14:58 | disposition home or self-care (01) ==
LOC: BICMAMMO 14:57
PROVIDERS: ATTEND Nurse Practitioner Adult Health
DX: Z12.31 Encounter for screening mammogram for malignant neoplasm of breast (principal); I10 Essential (primary) hypertension; Z80.3 Family history of malignant neoplasm of breast; Z98.890 Other specified postprocedural states
CPT/HCPCS: 71046; 77063; 77067

== ENCOUNTER 2020-07-05 09:36 | Outpatient (CLI) | payer MEDICARE ==
--- NOTE | 2020-07-05 18:22 | BD ---
Exam: DEXA Bone Density 07/05/20 INDICATION: Osteoporosis screening. COMPARISON: Prior exam dated 06/12/19. FINDINGS: Lumbar Spine: BMD (g/cm2) T-SCORE Z-SCORE L1 0.621 -3.4 Not provided L2 0.742 2.6 L3 0.741 -2.1 L4 0.671 -3.5 L1-L4 0.694 -3.2 The bone mineral density has declined 4.5% from the prior examination. Left Femoral Neck: 0.605 -2.2 Total Femur: 0.661 -2.3 The bone mineral density has improved 8.6% from the baseline; however, there was dissimilar scan type s with this evaluation. Impression: Osteoporosis. The patient remains at high risk for fracture. The bone mineral density of the L1-L4 re gion has declined 4.5% from the baseline. POS: BH
== END 2020-07-05 09:37 | disposition home or self-care (01) ==
LOC: BICMAMMO 09:36
PROVIDERS: ATTEND Internal Medicine Endocrinology, Diabetes & Metabolism
DX: M81.0 Age-related osteoporosis without current pathological fracture (principal); E78.5 Hyperlipidemia, unspecified; R42 Dizziness and giddiness
CPT/HCPCS: 77080; 80053; 80061; 82088; 82306; 82533; 83516; 83835; 84244; 84439; 84443; 86376

== ENCOUNTER 2020-11-13 08:44 | Outpatient (CLI) | payer MEDICARE ==
[2020-11-13] MEDS ORDERED: Iopamidol-370 76% 500 ML 1 ML ONE (09:06)
== END 2020-11-13 08:45 | disposition home or self-care (01) ==
LOC: BICCT 08:44
PROVIDERS: ATTEND Internal Medicine Gastroenterology
DX: R93.3 Abnormal findings on diagnostic imaging of other parts of digestive tract (principal)
CPT/HCPCS: 74170; 82565; Q9967

== ENCOUNTER 2020-12-15 21:33 | Observation (INO) | payer MEDICARE ==
[~2020-12-15 21:33] MED LIST changes: -Iopamidol 370 76% 100 ML VIAL ONE; +Iopamidol-370 76% 500 ML 1 ML ONE
[2020-12-15] MEDS ORDERED: Ondansetron PF 4 MG/2 ML Vial ONE (22:12)
[2020-12-15 22:43] LABS: ALT (SGPT) 31 U/L (8-55); AST (SGOT) 47 U/L (5-34); Albumin 4.5 g/dL (3.4-4.8); Alkaline Phosphatase 65 U/L (40-110); Anion Gap 17 mmol/L (10-20); BUN (Urea Nitrogen) 25 mg/dL (9.8-20.1); Bilirubin, Total 0.5 mg/dL (0.2-1.2); Calc. Creatinine Clearance 0 mL/min (70-130); Calcium 9.8 mg/dL (7.8-10.44); Carbon Dioxide 21 mmol/L (23-31); Chloride 105 mmol/L (98-107); Globulin 3.7 g/dL (2.4-3.5); Glucose 172 mg/dL (83-110); Lipase 58 U/L (8-78); Potassium 4.8 mmol/L (3.5-5.1); Protein, Total 8.2 g/dL (5.8-8.1); Sodium 138 mmol/L (136-145)
[2020-12-15 22:45] LABS: #Eosinphils 0.1 thou/uL (0.0-0.7); #Lymphocytes 1.2 thou/uL (1.20-3.40); #Monocytes 0.5 thou/uL (0.11-0.59); #Neutrophils 8.3 thou/uL (1.40-6.50); %Basophils 0.3 % (0.0-1.0); %Eosinophils 1.2 % (0.0-10.0); %Lymphocytes 12.1 % (21.0-51.0); %Monocytes 5.1 % (0.0-10.0); %Neutrophils 81.3 % (42.0-75.0); Hemoglobin 15.2 g/dL (12.0-16.0); Mean Corpuscular HGB CONC 31.9 g/dL (32.0-36.0); Mean Corpuscular Hemoglobin 31.3 pg (27.0-31.0); Mean Corpuscular Volume 98.1 fL (78.0-98.0); Mean Platelet Volume 11.3 fL (7.4-10.4); Platelet Count 65 thou/uL (130-400); RBC Distribution Width 12.1 % (11.5-14.5); Red Blood Cell (RBC) Count 4.85 mill/uL (4.20-5.40); White Blood Cell (WBC) Count 10.1 thou/uL (4.8-10.8)
[2020-12-15] MEDS ORDERED: Promethazine HCl 25 MG/ML VIAL ONE (23:41)
[2020-12-16] MEDS ORDERED: Ondansetron ODT 4 MG TAB PO PRN (01:26)
[2020-12-16] MEDS ORDERED: Meclizine HCl 12.5 MG TAB PO PRN (01:36)
[2020-12-16] MEDS: Lactated Ringer's 1,000 ML IV SCH ×2 (03:00→13:18)
[2020-12-16] MEDS ORDERED: Levothyroxine Sodium 75 MCG TAB PO SCH (06:00)
[2020-12-16 06:01] LABS: SARS-CoV-2 NAA Rapid Test Not Detected (NotDetected)
[2020-12-16] MEDS ORDERED: Apixaban 5 MG TAB PO SCH (09:00)
[2020-12-16] MEDS ORDERED: Losartan 25 MG TAB PO SCH (09:00)
[2020-12-16] MEDS ORDERED: Furosemide 20 MG TAB PO SCH (09:00)
[2020-12-16 15:38] VITALS: BP 116/56; TEMP 98.1
[2020-12-16 15:43] VITALS: BMI 26.4
[2020-12-16 19:10] LABS: Bacteria/HPF None Seen HPF (None Seen); Bilirubin Negative (Negative); Blood, Urine Trace (Negative); Clarity Clear (Clear); Glucose, Urine (Dipstick) Normal (Negative); Ketone, Urine Negative (Negative); Leukocyte 25 Leu/uL (Negative); Nitrite Negative (Negative); Protein, Urine (Dipstick) Negative (Neg-Trace); RBC/HPF 0-3 HPF (0-3); Squamous Epithelial 0-3 HPF (0-3); Urobilinogen Normal mg/dL (Less than 2)
== END 2020-12-16 20:20 | disposition home or self-care (01) ==
LOC: ERS 21:33 → ERHOLD 12-16 00:10 → INTOOBSV 12-16 00:10 → 2SE 12-16 12:00
PROVIDERS: ADMIT Family Medicine; ATTEND Family Medicine
DX: R42 Dizziness and giddiness (principal); I48.91 Unspecified atrial fibrillation; D69.6 Thrombocytopenia, unspecified; R74.01 Elevation of levels of liver transaminase levels; E03.9 Hypothyroidism, unspecified; I10 Essential (primary) hypertension; I65.01 Occlusion and stenosis of right vertebral artery; M19.09 Primary osteoarthritis, other specified site; Z20.822 Contact with and (suspected) exposure to COVID-19; Z95.0 Presence of cardiac pacemaker; Z88.0 Allergy status to penicillin; Z88.1 Allergy status to other antibiotic agents; Z88.2 Allergy status to sulfonamides; Z88.5 Allergy status to narcotic agent; Z79.01 Long term (current) use of anticoagulants; Z79.899 Other long term (current) drug therapy
CPT/HCPCS: 0240U; 70496; 70498; 80053; 83690; 84484; 85025; 96365; 96375; 99285; 81003; 81015; G0378; J2405; J2550; Q9967

== ENCOUNTER 2021-02-23 21:10 | Observation (INO) | payer MEDICARE ==
[2021-02-23 21:35] LABS: #Eosinphils 0.1 thou/uL (0.0-0.7); #Monocytes 0.4 thou/uL (0.11-0.59); #Neutrophils 7.6 thou/uL (1.40-6.50); %Basophils 0.4 % (0.0-1.0); %Eosinophils 1.1 % (0.0-10.0); %Lymphocytes 11.2 % (21.0-51.0); %Monocytes 4.6 % (0.0-10.0); %Neutrophils 82.6 % (42.0-75.0); Hemoglobin 15.3 g/dL (12.0-16.0); Mean Corpuscular HGB CONC 34.2 g/dL (32.0-36.0); Mean Corpuscular Hemoglobin 33.1 pg (27.0-31.0); Mean Corpuscular Volume 96.7 fL (78.0-98.0); Mean Platelet Volume 10.9 fL (7.4-10.4); Platelet Count 76 thou/uL (130-400); RBC Distribution Width 12.2 % (11.5-14.5); Red Blood Cell (RBC) Count 4.63 mill/uL (4.20-5.40); White Blood Cell (WBC) Count 9.2 thou/uL (4.8-10.8)
[2021-02-23 22:02] LABS: ALT (SGPT) 33 U/L (8-55); AST (SGOT) 31 U/L (5-34); Albumin 4.5 g/dL (3.4-4.8); Alkaline Phosphatase 68 U/L (40-110); Anion Gap 17 mmol/L (10-20); BUN (Urea Nitrogen) 32 mg/dL (9.8-20.1); Bilirubin, Total 0.5 mg/dL (0.2-1.2); Calc. Creatinine Clearance 0 mL/min (70-130); Calcium 9.8 mg/dL (7.8-10.44); Carbon Dioxide 21 mmol/L (23-31); Chloride 107 mmol/L (98-107); Globulin 3.1 g/dL (2.4-3.5); Glucose 184 mg/dL (83-110); Potassium 3.9 mmol/L (3.5-5.1); Protein, Total 7.6 g/dL (5.8-8.1); Sodium 141 mmol/L (136-145)
[2021-02-23] MEDS ORDERED: Ondansetron PF 4 MG/2 ML Vial ONE (22:33)
[2021-02-23] MEDS ORDERED: Meclizine HCl 25 MG TAB ONE (22:33)
[2021-02-24] MEDS ORDERED: Metoclopramide HCl 10 MG/2 ML VIAL ONE (00:28)
[2021-02-24] MEDS ORDERED: Ondansetron ODT 4 MG TAB PO PRN (01:13)
[2021-02-24] MEDS ORDERED: Ondansetron PF 4 MG/2 ML Vial IVP PRN (01:13)
[2021-02-24] MEDS ORDERED: Acetaminophen 325 MG TAB PO PRN (01:13)
[2021-02-24] MEDS ORDERED: Promethazine HCl 25 MG in Sodium Chloride 0.9% 50 ML IVPB PRN (01:26)
[2021-02-24] MEDS ORDERED: Promethazine 25 MG TAB PO PRN (01:26)
[2021-02-24 03:08] VITALS: BMI 26.8
[2021-02-24] MEDS ORDERED: Levothyroxine Sodium 75 MCG TAB PO SCH (06:00)
[2021-02-24 07:37] VITALS: TEMP 98.4
[2021-02-24] MEDS ORDERED: Furosemide 20 MG TAB PO SCH (09:00)
[2021-02-24] MEDS ORDERED: Apixaban 5 MG TAB PO SCH (09:00)
[2021-02-24] MEDS ORDERED: Meclizine HCl 25 MG TAB PO SCH (09:00)
[2021-02-24] MEDS ORDERED: Simvastatin 10 MG TAB PO SCH (09:00)
[2021-02-24 12:21] LABS: SARS-CoV-2 PCR by NAA Not Detected (NotDetected)
[2021-02-24 12:37] VITALS: BP 108/54
== END 2021-02-24 14:30 | disposition home or self-care (01) ==
LOC: ERS 21:10 → 2NO 02-24 01:13
PROVIDERS: ADMIT Student in an Organized Health Care Education/Training Program; ATTEND Student in an Organized Health Care Education/Training Program
DX: R42 Dizziness and giddiness (principal); R11.2 Nausea with vomiting, unspecified; I48.91 Unspecified atrial fibrillation; E03.9 Hypothyroidism, unspecified; I10 Essential (primary) hypertension; D69.6 Thrombocytopenia, unspecified; Z20.822 Contact with and (suspected) exposure to COVID-19; Z79.01 Long term (current) use of anticoagulants; Z79.899 Other long term (current) drug therapy; Z95.0 Presence of cardiac pacemaker; Z88.0 Allergy status to penicillin; Z88.2 Allergy status to sulfonamides; Z88.5 Allergy status to narcotic agent
CPT/HCPCS: 70450; 71045; 80053; 84484; 85025; 93005; G0378 ×2; U0003; U0005; 36415; 96374; 96375; J2405; J2765

== ENCOUNTER 2021-06-18 15:01 | Outpatient (CLI) | payer MEDICARE | END 2021-06-18 15:02 | disposition home or self-care (01) | LOC: BICMAMMO 15:01 | PROVIDERS: ATTEND Internal Medicine | DX: Z12.31 Encounter for screening mammogram for malignant neoplasm of breast (principal); Z98.890 Other specified postprocedural states; Z85.3 Personal history of malignant neoplasm of breast | CPT/HCPCS: 77063; 77067 ==